=== PATIENT | female | born 1955 | race Caucasian/White ===

== ENCOUNTER 2019-10-06 07:58 | Outpatient (CLI) | payer BC, SELFPAY ==
--- NOTE | 2019-10-06 09:00 | IR_ITS ---
WS: [id number] MYELOGRAM CERVICAL AND LUMBAR SPINE Fluoroscopic guided cervical and lumbar myelogram CLINICAL INFORMATION: cervical pain COMPARISON: None. TECHNIQUE: The procedure, including risks, benefits, and complications, were discussed with the patie nt who agreed to proceed. A timeout was performed to confirm correct patient, procedure, and site. Using sterile technique, the patient was prepped and draped in the usual sterile fashion. After admin istration of local anesthesia using 1% preservative-free lidocaine and using fluoroscopic guidance, a 22-gauge spinal needle was advanced into the subarachnoid space at the L4-5 level. Subsequently 13 c c of Omnipaque 300 was administered into the thecal sac. The needle was removed and hemostasis was ac hieved. Subsequently the table was tilted down and contrast flowed freely into the cervical spine. Sp ot fluoroscopic images were obtained. FLUOROSCOPIC TIME: 1.0 minutes. Spot fluoroscopic images demonstrate moderate spondylitic changes cervical spine with ACDF C3-C6. Aiden dware appears in good position. Interbody fusion grafts. Mild disc space narrowing C6-7. Normal align ment on the neutral view. No instability on flexion-extension. Normal C1-2 articulation. Mild lumbar curve convex left. 5 nonrib-bearing lumbar vertebral bodies. Hypertrophic lateral bridgin g osteophytes at L3-L5. Surgical clips in the pelvis. Normal lumbar alignment on neutral view. Mild d isc space narrowing L4-5. Moderate facet arthropathy lower lumbar spine. No instability on flexion-ex tension. Please see CT myelogram report for additional detail. IR/IR myelogram spine cervic/lumb IMPRESSION: 1. Uncomplicated cervical and lumbar myelogram. 2. Prior postoperative changes anterior cervical interbody fusion C3-4, C4-5, C5-6 with interbody fusion grafts. Hardware appears in good position. 3. Mild disc space narrowing C6-7. 4. Mild lumbar curve convex left. 5. No significant instability on flexion-extension in the lumbar or cervical s pine.
[2019-10-06] MEDS: iohexol 300 mg/mL 50 mL Btl INTRATHECA (09:32)
--- NOTE | 2019-10-06 11:00 | CT_ITS ---
WS: [id number] CT CERVICAL MYELOGRAM TECHNIQUE: CT of the cervical spine coronal and sagittal reformatted images post intrathecal administ ration of contrast. CLINICAL INFORMATION: cervical pain COMPARISON: MRI May 29, 2019 DLP: 1735.[address] scans at [facility] use at least one of these dose optimization techniques: automat ed exposure control; mA and/or kV adjustment per patient size (includes targeted exams where dose is matched to clinical indication); or iterative reconstruction. FINDINGS: Straightening of the normal cervical lordosis. Anterior cervical fusion with interbody fusion C3-C6 w ith interbody fusion grafts. Hardware appears in good position. No evidence of hardware loosening. In terbody fusion grafts with evidence of some bony bridging beyond the confines of the grafts more jake d-appearing at C4-5. Anterior fusion hardware appears intact. C2-C3: Mild facet arthropathy. No significant disc bulging. Spinal canal and foramen are patent. C3-C4: Postoperative changes anterior interbody cervical fusion. Mild left greater than right bony fo raminal narrowing. Spinal canal is patent. Moderate facet arthropathy. Facet arthropathy worse in the left. C4-C5: Postoperative changes anterior interbody cervical fusion. Moderate left facet arthropathy. Mil d left and no significant right foraminal narrowing. C5-C6: Anterior cervical fusion with interbody fusion. Mild central canal stenosis with osteophytic r idging. Moderate to severe bilateral bony foraminal narrowing with facet arthropathy and ligament fla vum hypertrophy. This is slightly worse in the right. C6-C7: Mild disc bulging with osteophytic ridging. Moderate right and mild to moderate left bony fora soraida narrowing. Moderate facet arthropathy. Mild central canal stenosis. C7-T1: No significant disc bulging. Spinal canal and foramen are patent. Visualized posterior fossa structures: Normal. Mild mucosal thickening right mastoid tip. 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 CT/CT cervical spine w con [id number] IMPRESSION: 1. Mild cervical curve. Straightening of the normal cervical lordosis. 2. Postoperative changes anterior interbody cervical fusion C3-C6. No evidence of hardware loosening. Interbody fusion grafts with some evidence of bony brid ging beyond the confines of the graft more solid-appearing at C4-5. 3. Moderate central canal stenosis due to disc osteophytic ridging at C5-C6. M ild central canal stenosis C6-C7. 4. Multilevel bony foraminal narrowing worse at bilateral C5-C6 worse in the r ight and right C6-C7. 5. Multilevel facet arthropathy worse at left C3-C4, and left C4-C5
--- NOTE | 2019-10-06 11:30 | CT_ITS ---
WS: [id number] CT LUMBAR SPINE TECHNIQUE: Contrast-enhanced CT of the lumbar spine with coronal and sagittal reformatted images. CLINICAL INFORMATION: lumbar pain COMPARISON: CT lumbar March 30, 2019 and MRI March 07, 2019 DLP: 1652.[address] scans at [facility] use at least one of these dose optimization techniques: automat ed exposure control; mA and/or kV adjustment per patient size (includes targeted exams where dose is matched to clinical indication); or iterative reconstruction. FINDINGS: Mild lumbar curve convex left. No high-grade central canal stenosis. Mild vacuum disc phenomenon L4-5 . L1-L2: Normal. L2-L3: Mild disc bulging with a shallow left pericentral protrusion. Narrowing of the left subarticul ar recess. Spinal canal is patent. Small left foraminal protrusion with mild left and no significant right foraminal narrowing. Moderate facet arthropathy. L3-L4: Mild disc bulging with impingement right subarticular recess. Spinal canal is patent. Small ri ght foraminal protrusion with mild right and no significant left foraminal narrowing. Mild facet arth ropathy. L4-L5: Mild disc bulging with narrowing of the right greater than left subarticular recess. Mild to m oderate right and no significant left foraminal narrowing. Moderate facet arthropathy. L5-S1: Minimal disc bulging. Slight effacement of ventral thecal sac. Spinal canal and foramen are pa tent. Mild facet arthropathy. Visualized pelvic bony structures: Normal. Paravertebral soft tissues: Normal. CT/CT lumbar spine w con [id number] IMPRESSION: 1. Mild lumbar curve convex left. No acute compression fractures. 2. Annual bulging L2-3 impinges the traversing left L3 nerve root in the suba rticular recess. Small left foraminal protrusion with mild left foraminal narro wing at this level. 3. Small right foraminal protrusion L3-4 with narrowing of the right subarticu lar recess and mild right L3-4 foraminal narrowing. 4. Mild to moderate right L4-5 foraminal narrowing. 5. Moderate facet arthropathy L3-L5. 6. No significant central canal stenosis.
== END 2019-10-06 07:59 | disposition home or self-care (01) ==
LOC: RADWPI 08:01
PROVIDERS: Family Provider Family Medicine; PCP Family Medicine; Visit Provider Specialist
DX: M51.26 Other intervertebral disc displacement, lumbar region (principal); M48.061 Spinal stenosis, lumbar region without neurogenic claudication; M47.816 Spondylosis without myelopathy or radiculopathy, lumbar region; Z98.1 Arthrodesis status; M43.22 Fusion of spine, cervical region; M48.02 Spinal stenosis, cervical region
CPT/HCPCS: 62305; 72040; 72120; 72126; 72132; J2001; Q9967